=== PATIENT | female | born 1990 | race African-American/Black ===

== ENCOUNTER 2021-08-19 03:06 | Emergency (ER) | payer OTHER ==
[2021-08-19] MEDS ORDERED: ACETAMINOPHEN 1000 MG/100 ML BAG IVPB ONE (03:15)
[2021-08-19] MEDS ORDERED: ONDANSETRON 4 MG/2 ML VIAL IVPUSH ONE ×2 (03:15→06:23)
[2021-08-19] MEDS ORDERED: SODIUM CHLORIDE 0.9% 500 ML INFUS.BAG IV ONE ×2 (03:15→06:23)
[2021-08-19 03:16] VITALS: BMI 56.1
[2021-08-19] MEDS ORDERED: METOCLOPRAMIDE HCL INJECTION 10 MG/2 ML VIAL IVPB ONE (03:24)
[2021-08-19] MEDS ORDERED: FAMOTIDINE 20 MG/50 ML IVPB 20 MG/50 ML MG IVPB ONE ×2 (03:27→03:41)
[2021-08-19] MEDS ORDERED: METOCLOPRAMIDE HCL INJECTION 10 MG/2 ML VIAL ONE (03:40)
[2021-08-19] MEDS ORDERED: ACETAMINOPHEN INJECTION 100 ML IVPB ONE (03:40)
[2021-08-19 03:57] LABS: BASO % 0.3 % (0-2.0); EOS % 2.4 % (0-4.5); HEMATOCRIT 34.9 % (32.4-45.2); LYMPH % 14.1 % (8-40); MCHC 34.3 g/dl (32.0-36.0); MEAN CELL VOLUME 84.6 fl (80-96); MEAN PLT VOLUME 8.4 fl (7.5-11.1); MONO % 4.9 % (3.8-10.2); NEUT % 78.3 % (42.8-82.8); PLATELET COUNT 210 10^3/uL (134-434); RBC 4.13 M/mm3 (3.60-5.2); RDW 14.3 % (11.6-15.6); WHITE BLOOD COUNT 10.4 K/mm3 (4.0-10.0)
[2021-08-19 04:04] LABS: INR 1.11 (0.83-1.09); PROTHROMBIN TIME (PATIENT) 12.8 SEC (9.7-13.0)
[2021-08-19 04:07] LABS: ACTIVATED PTT 36.6 SECONDS (25.2-36.5)
[2021-08-19 05:43] LABS: CALCIUM 8.8 mg/dL (8.5-10.1)
[2021-08-19 05:44] LABS: ALBUMIN 3.2 g/dl (3.4-5.0); BLOOD UREA NITROGEN 10.4 mg/dL (7-18)
[2021-08-19 05:47] LABS: CREATININE 0.6 mg/dL (0.55-1.3)
[2021-08-19 05:48] LABS: BILIRUBIN,TOTAL 0.3 mg/dL (0.2-1); TOT PROT 6.2 g/dl (6.4-8.2)
[2021-08-19] MEDS ORDERED: ONDANSETRON 4 MG/2 ML VIAL ONE (06:26)
[2021-08-19 06:37] LABS: EPI CELLS >36 /uL (0-25.1); HYALINE CASTS 5 /uL (0-3.1); URINE APPEARANCE CLOUDY; URINE BACTERIA 919 /uL (0-1359); URINE BILIRUBIN NEGATIVE (NEGATIVE); URINE COLOR YELLOW; URINE GLUCOSE (UA) NEGATIVE (NEGATIVE); URINE KETONE TRACE (NEGATIVE); URINE LEUK ESTERASE TRACE (NEGATIVE); URINE NITRITE NEGATIVE (NEGATIVE); URINE PROTEIN NEGATIVE (NEGATIVE); URINE RBC 17 /uL (0-23.9); URINE WBC 131 /uL (0-25.8)
[2021-08-19 09:03] VITALS: BP 122/85; PULSE 98; TEMP 98.8
== END 2021-08-19 08:50 | disposition home or self-care (01) ==
LOC: JER 03:06
PROC: 3E0333Z Introduction of Anti-inflammatory into Peripheral Vein, Percutaneous Approach (ICD-10-PCS; principal; 2021-08-19)
PROC: 3E033GC Introduction of Other Therapeutic Substance into Peripheral Vein, Percutaneous Approach (ICD-10-PCS; 2021-08-19)
PROC: 3E033GC Introduction of Other Therapeutic Substance into Peripheral Vein, Percutaneous Approach (ICD-10-PCS; 2021-08-19)
PROC: 3E033GC Introduction of Other Therapeutic Substance into Peripheral Vein, Percutaneous Approach (ICD-10-PCS; 2021-08-19)
DX: R11.2 Nausea with vomiting, unspecified (principal)
CPT/HCPCS: 36415; 74177-TC; 80053; 81003; 83690; 84484; 84703; 85025; 85610; 85730; 86850; 86900; 86901; 87086; 93005; 93010; 99285-25; Q9967

== ENCOUNTER 2022-11-25 19:13 | Emergency (ER) | payer BC, OTHER ==
[2022-11-25 19:39] VITALS: BP 127/79; PULSE 92; RESP 18; TEMP 98; BMI 50.2
[2022-11-25] MEDS ORDERED: ACETAMINOPHEN 325 MG TABLET (FP) PO ONE (20:56)
[2022-11-25] MEDS ORDERED: ACETAMINOPHEN 325 MG TABLET (FP) ONE (20:58)
[2022-11-25 21:13] LABS: BASO % 0.8 % (0-2.0); EOS % 3.2 % (0-4.5); HEMATOCRIT 35.7 % (32.4-45.2); HEMOGLOBIN 11.8 GM/dL (10.7-15.3); LYMPH % 21.6 % (8-40); MCH 27.7 pg (25.7-33.7); MEAN PLT VOLUME 8.7 fl (7.5-11.1); MONO % 4.6 % (3.8-10.2); NEUT % 69.8 % (42.8-82.8); PLATELET COUNT 199 10^3/uL (134-434); RBC 4.25 M/mm3 (3.60-5.2); RDW 15.3 % (11.6-15.6); WHITE BLOOD COUNT 11.9 K/mm3 (4.0-10.0)
[2022-11-25 21:32] LABS: CALCIUM 8.9 mg/dL (8.5-10.1)
[2022-11-25 21:35] LABS: CREATININE 0.6 mg/dL (0.55-1.3); URIC ACID 4.3 mg/dL (2.6-7.2)
[2022-11-25 21:37] LABS: BILIRUBIN,TOTAL 0.3 mg/dL (0.2-1); TOT PROT 6.2 g/dl (6.4-8.2)
== END 2022-11-25 22:43 | disposition home or self-care (01) ==
LOC: JERFT 19:13
DX: O26.891 Other specified pregnancy related conditions, first trimester (principal); M25.572 Pain in left ankle and joints of left foot; M77.32 Calcaneal spur, left foot; Z3A.08 8 weeks gestation of pregnancy
CPT/HCPCS: 36415; 73610-TC-LT-FY; 73630-TC-LT; 80053; 84550; 85025; 99284-25